=== PATIENT | male | born 1990 | race Caucasian/White ===

== ENCOUNTER 2019-12-03 04:13 | Emergency (ER) | payer OTHER ==
[~2019-12-03] VITALS: Ht 180.3 cm; Wt 74.8 kg
[~2019-12-03 04:13] MED LIST: ADDERALL 10 MG10 MG; AUGMENTIN 875875 MG PO; AZITHROMYCIN 2250 MG PO; AZITHROMYCIN 6600 M1 PO; BACTRIM DS TAB1 EACH PO; DEPAKOTE; HYDROCODONE GU PO; IBUPROFEN 800800 M1 PO; NAPROSYN500 MG PO; NOHOMEMEDICATIONS; NORCO 5-325 TA1 EACH PO; PENICILLIN VK500 MG PO; PROZAC 10 MG CA10 M1; SEROQUEL; TRILEPTAL; VENTOLIN17 GM INH; ZPAK PO
[2019-12-03] MEDS ORDERED: HYDROCODON-ACE1 EAC7 PO (10:55)
[2019-12-03] MEDS ORDERED: AUGMENTIN 500-1 EACH PO (10:55)
[2019-12-03 11:11] VITALS: BP 112/75
== END 2019-12-03 11:12 | disposition home or self-care (01) ==
LOC: M.ERS 04:13
DX: S02.32XA Fracture of orbital floor, left side, initial encounter for closed fracture (principal); S02.40DA Maxillary fracture, left side, initial encounter for closed fracture; S02.2XXA Fracture of nasal bones, initial encounter for closed fracture; Z87.891 Personal history of nicotine dependence; Z88.8 Allergy status to other drugs, medicaments and biological substances; Y08.89XA Assault by other specified means, initial encounter; Y93.89 Activity, other specified; Y92.89 Other specified places as the place of occurrence of the external cause; Y99.8 Other external cause status